=== PATIENT | female | born 1960 | race Caucasian/White ===

== ENCOUNTER 2021-10-14 18:28 | Emergency (ER) | payer OTHER ==
[2021-10-14] MEDS ORDERED: MORPHINE 4 MG/ML SYR ONE (18:50)
[2021-10-14] MEDS ORDERED: ONDANSETRON 4 MG/2 ML VIAL ONE (18:50)
[2021-10-14 19:07] LABS: Hematocrit 36.1 % (36.0-45.0); Lymphocytes % 21.3 % (15.3-44.8); MPV 7.6 fL (7.6-11.3); RBC Red Blood Cell Count 3.85 M/uL (3.86-4.86)
[2021-10-14 19:23] LABS: Potassium 2.3 mmol/L (3.5-5.1)
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
[2021-10-14 20:22] LABS: Phosphorus 1.9 mg/dL (2.5-4.9)
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
--- NOTE | 2021-10-14 20:34 | RAD REPORT ---
EXAM DESCRIPTION: RAD - Tib Fib Right - 10/14/2021 7:25 pm CLINICAL HISTORY: Right leg pain FINDINGS: No fracture is seen
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
[2021-10-14] MEDS ORDERED: NS KCL 20MEQ 1,000 ML IV ONE (21:04)
[2021-10-14] MEDS ORDERED: POTASSIUM 25 MEQ EFFERV TAB ONE ×3 (21:04→21:22)
[2021-10-14] MEDS ORDERED: KCL 20 MEQ/100 mL IVPB 100 ML IV ONE (21:05)
[2021-10-14] MEDS ORDERED: ACETAMINOPHEN 500 MG TAB ONE (22:34)
[2021-10-14] MEDS ORDERED: POTASS/SODIUM PHOSPHATE 1 PKT POWD.PACK ONE (22:40)
[2021-10-14 22:57] LABS: Albumin 3.8 g/dL (3.4-5.0); Bilirubin Direct 0.1 mg/dL (0-0.2); Bilirubin Total 0.3 mg/dL (0.2-1.0); Magnesium 1.5 mg/dL (1.8-2.4); Protein, Total 7.1 g/dL (6.4-8.2)
[2021-10-14 23:03] LABS: Protime INR 0.98
[2021-10-14 23:32] LABS: Troponin High Sensitivity 7.9 pg/mL (<58.9)
[2021-10-14] MEDS ORDERED: Magnesium Sulfate 2gm IVPB 2 G/50 ML BAG IV ONE (23:32)
[2021-10-15] MEDS ORDERED: POTASSIUM 25 MEQ EFFERV TAB ONE (00:31)
[2021-10-15 03:17] VITALS: TEMP 97.9
[2021-10-15 03:20] VITALS: BP 125/78; O2SAT 100
--- NOTE | 2021-10-15 07:44 | EKG ---
Test Date: 2021-10-14 Test Time: 21:43:48 Scientist/Engineer: ALESSIO MEASUREMENT RESULTS: Intervals: Rate: 70 CA: 144 QRSD: 88 QT: 462 QTc: 498 [place]: P: 64 CA: 144 QRS: 37 T: 45 INTERPRETIVE STATEMENTS: Sinus rhythm with premature supraventricular complexes Prolonged QT Abnormal ECG No previous ECG available for comparison Electronically Signed On 10-15-21 07:43:13 CDT by Carlo Gonzalez
== END 2021-10-15 00:47 | disposition home or self-care (01) ==
LOC: ER 18:28
DX: S80.01XA Contusion of right knee, initial encounter (principal); E87.6 Hypokalemia; I10 Essential (primary) hypertension; V49.49XA Driver injured in collision with other motor vehicles in traffic accident, initial encounter; J44.9 Chronic obstructive pulmonary disease, unspecified; Z88.0 Allergy status to penicillin
CPT/HCPCS: 93005; 85025; 80048; 36415; 83735; 84100; 85610; 80076; 84484; 70450; 72125; 71260; 74177; 73562; 73590; 99285; Q9967; J3480 ×2; J3475; J2405